=== PATIENT | female | born 1985 | race American Indian/Alaskan Native ===

== ENCOUNTER 2017-07-12 21:20 | Emergency (ER) | payer OTHER ==
[2017-07-12] MEDS ORDERED: TORADOL IV ONE (21:45)
[2017-07-12 22:07] LABS: Basophils % (Auto) 0.1 % (0.0-1.8); Eosinophils % (Auto) 0.3 % (0.0-4.3); Hematocrit 38.2 % (30.3-42.9); Hemoglobin 12.9 gm/dl (10.1-14.3); Mean Corpuscular HGB Conc 34 % (30-34); Mean Corpuscular Hemoglobin 30 pg (28-32); Mean Corpuscular Volume 90 fl (79-97); Platelet Count 341 K/mm3 (140-440); Red Blood Count 4.25 M/mm3 (3.65-5.03); Red Cell Distribution Width 15.5 % (13.2-15.2); White Blood Count 13.6 K/mm3 (4.5-11.0)
[2017-07-12 22:23] LABS: Bilirubin,Urine NEG (Negative); Blood,Urine LG (Negative); Ketones,Urine NEG (Negative); Leukocyte Esterase,Urine TR (Negative); Mucus,Urine 1+ /HPF; Nitrite,Urine NEG (Negative)
[2017-07-12 22:30] LABS: Alanine Aminotransferase 77 units/L (7-56); Albumin 4.2 g/dL (3.9-5); Alkaline Phosphatase 110 units/L (35-129); Anion Gap 18 mmol/L; BUN/Creatinine Ratio 17; Blood Urea Nitrogen 10 mg/dL (7-17); Calcium 9.5 mg/dL (8.4-10.2); Carbon Dioxide 23 mmol/L (22-30); Chloride 100.8 mmol/L (98-107); Glucose 90 mg/dL (65-100); Lipase 13 units/L (13-60); Potassium 3.8 mmol/L (3.6-5.0); Sodium 138 mmol/L (137-145); Total Protein 8.3 g/dL (6.3-8.2)
[2017-07-13] MEDS ORDERED: NORCO 5/325 ONE (06:37)
[2017-07-13] MEDS ORDERED: NORCO 5/325 PO ONE (06:47)
[2017-07-13] MEDS ORDERED: DILAUDID IV ONE (07:25)
[2017-07-13] MEDS ORDERED: ZOFRAN IV ONE (07:25)
[2017-07-13] MEDS ORDERED: BENADRYL IV ONE (07:25)
--- NOTE | 2017-07-13 08:14 | Ultrasound Report ---
ULTRASOUND PELVIC COMPLETE ULTRASOUND TRANSVAGINAL HISTORY: Right pelvic pain, right flank pain. COMPARISON: None. TECHNIQUE: Transabdominal and transvaginal ultrasound with color doppler interrogation. FINDINGS: Uterus: The uterus is anteverted. The uterus measures 8 x 5 x 5 cm. No uterine mass is identified. Cervix: Few small nabothian cysts. Endometrium: 5.3 mm. Right ovary: 3.6 x 2.0 x 2.0 cm. No mass or cyst. Left ovary: 5.3 x 3.4 x 4.2 cm. There is a complex cystic area within the left ovary measuring up to 3.5 cm. No internal perfusion on color Doppler. This resembles a hemorrhagic ovarian cyst. No pelvic fluid or mass is identified. IMPRESSION: Complex cystic lesion with debris and septation in the left ovary measuring up to 3.5 cm. I suspect this represents a hemorrhagic cyst.
--- NOTE | 2017-07-13 08:14 | Ultrasound Report ---
ULTRASOUND ABDOMEN COMPLETE: Technique: Transabdominal ultrasound with color Doppler interrogation. History: Right flank pain, right abdominal pain. Findings: The liver is normal size, contour and echotexture. The gallbladder dimensions are within normal limits without intraluminal stone, wall thickening, or pericholecystic fluid. The CBD is normal caliber. The visualized portions of the pancreas including the head and proximal body are within normal limits. The kidneys demonstrate no hydronephrosis or mass. Cortical thickness and echogenicity are within normal limits bilaterally. The spleen and aorta are within normal limits. No aneurysmal dilatation is noted. No ascites. The bladder is unremarkable. IMPRESSION: Unremarkable abdominal ultrasound.
--- NOTE | 2017-07-13 10:07 | Emergency Department Report ---
ED General Adult HPI - General Chief complaint: Abdominal Pain Stated complaint: RIGHT FLANK PAIN Time Seen by Provider: 07/13/17 06:30 Source: patient Mode of arrival: Ambulatory Limitations: No Limitations - History of Present Illness Initial comments: Patient complains of right flank pain and right upper quadrant discomfort. Tuesday she has a UTI because she was treated for one 2 weeks ago. She does not recall what antibiotic she took. She denies fever or chills. She denies recent vomiting. She denies fatty food intolerance. She has had no respiratory symptoms denies cough. She is not short of breath. There's been no recent traveling. She denies leg pain or swelling. Location: back, abdomen, right (upper quadrant and back) Radiation: non-radiation Severity scale (0 -10): 0 Quality: aching Consistency: intermittent, now resolved Improves with: none Worsens with: none Associated Symptoms: denies other symptoms Treatments Prior to Arrival: none - Related Data Previous Rx's Medication Instructions Recorded Last Taken Type Cefuroxime Axetil [Ceftin] 250 mg PO Q12H #10 ml 07/13/17 Unknown Rx traMADol [Ultram] 50 mg PO Q6HR PRN #14 tablet 07/13/17 Unknown Rx Allergies Allergy/AdvReac Type Severity Reaction Status Date / Time No Known Allergies Allergy Unverified 07/12/17 21:39 ED Review of Systems ROS: Stated complaint: RIGHT FLANK PAIN Other details as noted in HPI Constitutional: denies: chills, fever Eyes: denies: eye pain, eye discharge, vision change ENT: denies: ear pain, throat pain Respiratory: denies: cough, shortness of breath, wheezing Cardiovascular: denies: chest pain, palpitations Endocrine: no symptoms reported Gastrointestinal: abdominal pain. denies: nausea, diarrhea Genitourinary: denies: urgency, dysuria, discharge Musculoskeletal: denies: back pain, joint swelling, arthralgia Skin: denies: rash, lesions Neurological: denies: headache, weakness, paresthesias Psychiatric: denies: anxiety, depression Hematological/Lymphatic: denies: easy bleeding, easy bruising ED Past Medical Hx - Past Medical History Previous Medical History?: No - Surgical History Past Surgical History?: No - Social History Smoking Status: Current Every Day Smoker Substance Use Type: None - Medications Home Medications: Home Medications Medication Instructions Recorded Confirmed Last Taken Type Cefuroxime Axetil [Ceftin] 250 mg PO Q12H #10 ml 07/13/17 Unknown Rx traMADol [Ultram] 50 mg PO Q6HR PRN #14 tablet 07/13/17 Unknown Rx ED Physical Exam - General Limitations: No Limitations General appearance: alert, in no apparent distress - Head Head exam: Present: atraumatic, normocephalic - Eye Eye exam: Present: normal appearance. Absent: scleral icterus - ENT ENT exam: Present: mucous membranes moist - Neck Neck exam: Present: normal inspection - Respiratory Respiratory exam: Present: normal lung sounds bilaterally. Absent: respiratory distress - Cardiovascular Cardiovascular Exam: Present: regular rate, normal rhythm. Absent: systolic murmur, diastolic murmur, rubs, gallop - GI/Abdominal GI/Abdominal exam: Present: soft, tenderness (right upper quadrant), normal bowel sounds. Absent: distended, guarding, rebound, rigid - Extremities Exam Extremities exam: Present: normal inspection - Back Exam Back exam: Present: normal inspection - Neurological Exam Neurological exam: Present: alert, oriented X3, CN II-XII intact. Absent: motor sensory deficit - Psychiatric Psychiatric exam: Present: normal affect, normal mood - Skin Skin exam: Present: warm, dry, intact, normal color. Absent: rash ED Course Vital Signs 07/12/17 07/13/17 07/13/17 21:39 01:31 03:11 Temperature 98.6 F 98.6 F Pulse Rate 122 H 94 H 96 H Respiratory 20 18 Rate Blood Pressure 125/85 111/79 Blood Pressure [Right] O2 Sat by Pulse 100 100 Oximetry 07/13/17 07/13/17 07/13/17 03:12 03:14 03:20 Temperature Pulse Rate 93 H 81 Respiratory 13 11 L 18 Rate Blood Pressure 141/91 141/91 Blood Pressure [Right] O2 Sat by Pulse 100 100 Oximetry 07/13/17 07/13/17 07/13/17 03:30 04:00 04:30 Temperature Pulse Rate 93 H 90 99 H Respiratory 18 14 23 Rate Blood Pressure 141/91 120/71 126/71 Blood Pressure [Right] O2 Sat by Pulse 100 98 98 Oximetry 07/13/17 07/13/17 07/13/17 05:00 05:30 06:00 Temperature Pulse Rate 76 85 103 H Respiratory 19 22 23 Rate Blood Pressure 112/70 126/70 136/84 Blood Pressure [Right] O2 Sat by Pulse 96 99 96 Oximetry 07/13/17 07/13/17 07/13/17 06:30 06:49 07:00 Temperature Pulse Rate 99 H 78 Respiratory 22 16 19 Rate Blood Pressure 136/84 124/68 Blood Pressure [Right] O2 Sat by Pulse 100 97 Oximetry 07/13/17 07/13/17 07/13/17 07:49 08:22 08:30 Temperature Pulse Rate Respiratory 14 Rate Blood Pressure 124/68 132/84 Blood Pressure [Right] O2 Sat by Pulse 100 100 Oximetry 07/13/17 07/13/17 07/13/17 08:44 09:00 09:30 Temperature Pulse Rate Respiratory 14 Rate Blood Pressure 114/67 105/62 Blood Pressure [Right] O2 Sat by Pulse 100 99 97 Oximetry 07/13/17 07/13/17 07/13/17 10:00 11:06 11:22 Temperature 98.3 F Pulse Rate 106 H Respiratory 67 H Rate Blood Pressure 116/64 116/64 Blood Pressure 106/66 [Right] O2 Sat by Pulse 96 100 100 Oximetry 07/13/17 11:30 Temperature Pulse Rate Respiratory Rate Blood Pressure 105/70 Blood Pressure [Right] O2 Sat by Pulse 100 Oximetry - Reevaluation(s) Reevaluation #1: A should symptoms have improved. Her tests are negative except for an ovarian cyst and a possible UTI. She does have unexplained transaminase anemia. She' ll be referred to [facility] for further evaluation. ED Medical Decision Making - Lab Data Result diagrams: 07/12/17 21:54 07/12/17 21:54 Laboratory Results - last 24 hr 07/12/17 07/12/17 07/12/17 21:54 21:54 Unknown WBC 13.6 H RBC 4.25 Hgb 12.9 Hct 38.2 MCV 90 MCH 30 MCHC 34 RDW 15.5 H Plt Count 341 Lymph % (Auto) 7.5 L [place] % (Auto) 6.4 Eos % (Auto) 0.3 Baso % (Auto) 0.1 Lymph # 1.0 L [place] # 0.9 H Eos # 0.0 Baso # 0.0 Seg Neutrophils % 85.7 H Seg Neutrophils # 11.7 H Sodium 138 Potassium 3.8 Chloride 100.8 Carbon Dioxide 23 Anion Gap 18 BUN 10 Creatinine 0.6 L Estimated GFR > 60 BUN/Creatinine Ratio 17 Glucose 90 Calcium 9.5 Total Bilirubin 0.40 AST 101 H ALT 77 H Alkaline Phosphatase 110 Total Protein 8.3 H Albumin 4.2 Albumin/Globulin Ratio 1.0 Lipase 13 Urine Color Yellow Urine Turbidity Clear Urine pH 5.0 Ur Specific [place] 1.031 H Urine Protein 30 mg/dl Urine Glucose (UA) Neg Urine Ketones Neg Urine Blood Lg Urine Nitrite Neg Urine Bilirubin Neg Urine Urobilinogen 4.0 Ur Leukocyte Esterase Tr Urine WBC (Auto) 5.0 Urine RBC (Auto) 9.0 U Epithel Cells (Auto) 3.0 Urine Mucus 1+ Urine HCG, Qual 07/13/17 06:31 WBC RBC Hgb Hct MCV MCH MCHC RDW Plt Count Lymph % (Auto) [place] % (Auto) Eos % (Auto) Baso % (Auto) Lymph # [place] # Eos # Baso # Seg Neutrophils % Seg Neutrophils # Sodium Potassium Chloride Carbon Dioxide Anion Gap BUN Creatinine Estimated GFR BUN/Creatinine Ratio Glucose Calcium Total Bilirubin AST ALT Alkaline Phosphatase Total Protein Albumin Albumin/Globulin Ratio Lipase Urine Color Urine Turbidity Urine pH Ur Specific [place] Urine Protein Urine Glucose (UA) Urine Ketones Urine Blood Urine Nitrite Urine Bilirubin Urine Urobilinogen Ur Leukocyte Esterase Urine WBC (Auto) Urine RBC (Auto) U Epithel Cells (Auto) Urine Mucus Urine HCG, Qual Negative Critical care attestation.: If time is entered above; I have spent that time in minutes in the direct care of this critically ill patient, excluding procedure time. ED Disposition Clinical Impression: Transaminasemia Abdominal pain Qualifiers: Abdominal location: right upper quadrant Qualified Code(s): R10.11 - Right upper quadrant pain UTI (urinary tract infection) Qualifiers: Urinary tract infection type: site unspecified Hematuria presence: without hematuria Qualified Code(s): N39.0 - Urinary tract infection, site not specified Disposition: TO HOME OR SELFCARE Is pt being admited?: No Does the pt Need Aspirin: No Condition: Stable Instructions: Abdominal Pain (ED), Urinary Tract Infection in Women (ED) Additional Instructions: Laboratory tests were slightly abnormal. It appears to have a urinary tract infection. He was found to have an ovarian cyst. Otherwise your studies were negative. [facility]. Prescriptions: Cefuroxime Axetil [Ceftin] 250 mg PO Q12H #10 ml traMADol [Ultram] 50 mg PO Q6HR PRN #14 tablet PRN Reason: Pain Referrals: PRIMARY CARE, [Primary Care Provider] - 3-5 Days [facility] [Provider Group] - 3-[address] [facility] [Provider Group] - 2-3 Days Time of Disposition: 12:04
[2017-07-13] MEDS ORDERED: ROCEPHIN/NS 1 GM/50 ML 1 GM/50 ML BAG IV ONE (10:08)
--- NOTE | 2017-07-13 10:48 | Cat Scan Report ---
CT ABDOMEN PELVIS WITH CONTRAST: HISTORY: Right upper quadrant abdominal pain. COMPARISON: none. TECHNIQUE: Helical CT in 1.25mm intervals following IV contrast. Sagittal and coronal reconstructions. FINDINGS: Lung bases: normal. Liver: normal. Biliary system: normal. Pancreas: normal. Spleen: normal. Kidneys/ureters/bladder: normal. Adrenal glands: normal. Aorta: normal. Intestines: normal. Appendix: normal. Pelvic viscera: 3.3 cm left ovarian cyst is identified. The uterus and right adnexa are unremarkable.. Musculoskeletal: normal. IMPRESSION: 3.3 cm left ovarian cyst. No acute inflammatory process is appreciated.
[2017-07-13] MEDS ORDERED: cefTRIAXone 1 GM in NACL 0.9% 20 ML IV ONE (11:00)
[2017-07-13 12:35] VITALS: BP 124/81
== END 2017-07-13 12:25 | disposition home or self-care (01) ==
LOC: ED 21:20
DX: R10.11 Right upper quadrant pain (principal); N39.0 Urinary tract infection, site not specified; R74.0 Nonspecific elevation of levels of transaminase and lactic acid dehydrogenase [LDH]; F17.200 Nicotine dependence, unspecified, uncomplicated
CPT/HCPCS: 36415; 74177; 76700; 76830; 76856; 80053; 81001; 81025; 83690; 85025; 87086; 96374; 96375; 99284; J0696; J1170; J1200; J1885; J2405; Q9967